=== PATIENT | male | born 1945 | race American Indian/Alaskan Native ===

== ENCOUNTER 2018-01-18 18:04 | Emergency (ER) | payer MEDICARE ==
[2018-01-18 20:25] LABS: Basophils % (Auto) 0.4 % (0.0-1.8); Eosinophils # (Auto) 0.1 K/mm3 (0.0-0.4); Eosinophils % (Auto) 1.1 % (0.0-4.3); Hematocrit 35.7 % (35.5-45.6); Lymphocytes # (Auto) 2.2 K/mm3 (1.2-5.4); Mean Corpuscular HGB Conc 34 % (32-34); Mean Corpuscular Hemoglobin 31 pg (28-32); Mean Corpuscular Volume 92 fl (84-94); Monocytes # (Auto) 0.9 K/mm3 (0.0-0.8); Monocytes % (Auto) 8.3 % (0.0-7.3); Platelet Count 188 K/mm3 (140-440); Red Blood Count 3.88 M/mm3 (3.65-5.03); Red Cell Distribution Width 15.4 % (13.2-15.2)
[2018-01-18 20:44] LABS: Calcium 8.9 mg/dL (8.4-10.2)
--- NOTE | 2018-01-18 22:10 | XRay Report ---
FINAL REPORT PROCEDURE: XR CHEST ROUTINE 2V TECHNIQUE: PA and lateral chest radiographs were obtained. CPT 20992 HISTORY: Shortness of breath COMPARISON: No prior studies are available for comparison. FINDINGS: Heart: Normal. Mediastinum/Vessels: A calcified lymph node is noted in the left hilum most likely representing an old healed granulomatous disease. Lungs/Pleural space: Bilateral lungs are hyperinflated. There are no confluent infiltrates or mass lesions. Pleural spaces are clear.. Bony thorax: No acute osseous abnormality. Other: IMPRESSION: COPD No acute pulmonary process..
--- NOTE | 2018-01-18 22:14 | Emergency Department Report ---
HPI - General Chief Complaint: Dyspnea/Respdistress Time Seen by Provider: 01/18/18 19:58 - HPI HPI: The patient is a 72-year-old male with a history of congestive heart failure, presents for evaluation of dyspnea. The patient states that he experienced a transient episode of moderate to severe constant dyspnea for minutes after returning home from running errands, exacerbated with exertion. He states that his dyspnea has been completely resolved since arrival to the emergency department. The patient denies trauma to the chest, cough, syncope, chest pain, hemoptysis, unilateral leg swelling, recent immobilization, history of DVT or PE , hx of recent cancer. ED Past Medical Hx - Past Medical History Previous Medical History?: Yes Hx Hypertension: Yes Hx Congestive Heart Failure: Yes Hx Arthritis: Yes Hx COPD: Yes Hx HIV: No Additional medical history: CAD - Surgical History Past Surgical History?: Yes Additional Surgical History: Prostate surgery - Social History Smoking Status: Current Every Day Smoker Substance Use Type: None - Medications Home Medications: Home Medications Medication Instructions Recorded Confirmed Last Taken Type ALBUTEROL Inhaler [ProAir HFA 2 puff IH QID PRN 06/08/16 06/08/16 1 Day Ago History Inhaler] ~06/07/16 Budesoni/Formotero 160-4.5(Nf) 2 puff IH BID 06/08/16 06/08/16 1 Day Ago History [Symbicort 160-4.5 (Nf)] ~06/07/16 Temazepam 15 mg PO DAILY 06/08/16 06/08/16 1 Day Ago History ~06/07/16 Aspirin [Aspirin TAB] 325 mg PO QDAY #30 tablet 06/10/16 Unknown Rx AtorvaSTATin [Lipitor] 80 mg PO DAILY #60 tablet 06/10/16 Unknown Rx Carvedilol [Coreg] 12.5 mg PO BID #60 tablet 06/10/16 Unknown Rx Furosemide [Lasix TAB] 40 mg PO QDAY #30 tablet 06/10/16 Unknown Rx Lisinopril [Zestril TAB] 40 mg PO QDAY #30 tablet 06/10/16 Unknown Rx Potassium Chloride [K-Dur] 20 meq PO QDAY #30 tablet 06/10/16 Unknown Rx ED Review of Systems ROS: Stated complaint: SOB Other details as noted in HPI Constitutional: denies: fever ENT: denies: throat or neck pain Respiratory: denies: cough reports shortness of breath Cardiovascular: denies: chest pain Endocrine: denies unexplained weight loss or gain Gastrointestinal: denies: abdominal pain, nausea Genitourinary: denies: dysuria Musculoskeletal: denies: leg swelling Skin: denies: rash Neurological: denies: headache Hematological/Lymphatic: denies: easy bleeding or easy bruising Psych: denies sadness or hopelessness Physical Exam - Physical Exam Vital Signs: Vital Signs 01/18/18 01/18/18 01/18/18 19:42 19:48 19:50 Temperature 98.1 F 98.1 F Pulse Rate 65 65 Respiratory 16 16 16 Rate Blood Pressure 150/64 Blood Pressure 150/64 [Right] O2 Sat by Pulse 98 98 98 Oximetry Physical Exam: General: well-nourished, well-developed, no acute distress Head: Normocephalic, atraumatic Eyes: normal sclera ENT: Mucous membranes are pink and moist Neck: trachea midline, neck supple, No neck stiffness, no cervical adenopathy Respiratory: Breath sounds equal bilaterally, no wheezing, rales, or rhonchi Cardio: S1 and S2 present, no murmurs, rubs, gallops, capillary refill is brisk Abdomen: Normoactive bowel sounds, soft abdomen, no rigidity, no guarding or rebound tenderness Musc: No pitting edema Skin: No rash Neuro: no facial drooping, normal speech Psych: Normal affect ED Course Vital Signs 01/18/18 01/18/18 01/18/18 19:42 19:48 19:50 Temperature 98.1 F 98.1 F Pulse Rate 65 65 Respiratory 16 16 16 Rate Blood Pressure 150/64 Blood Pressure 150/64 [Right] O2 Sat by Pulse 98 98 98 Oximetry ED Medical Decision Making - Lab Data Result diagrams: 01/18/18 20:05 01/18/18 20:05 - Medical Decision Making The patient was seen and examined by myself. The patient is placed on a mapping pilot and continuous pulse ox. On initial evaluation, the patient was found to be in no distress. EKG was negative for findings suggestive of acute cardiac infarct. Labs and imaging are obtained. Chest x-ray exhibits cardiomegaly and mild pulmonary vascular congestion, grossly unchanged from previous x-ray. Lab results reveal elevated BNP of 399, consistent with no history of congestive heart failure. The patient was reevaluated and reported that she remained asymptomatic and felt fine and at his normal baseline. As the patient has a VALERIA risk score less than 2, and a well's score less than 2, the patient is at low risk of ACS or pulmonary emboli etiology of their symptoms. The patient is stable for discharge with outpatient follow-up. The patient is given follow-up and return instructions. The patient expressed understanding and agreed with the plan. The patient is discharged in stable condition. Critical care attestation.: If time is entered above; I have spent that time in minutes in the direct care of this critically ill patient, excluding procedure time. ED Disposition Clinical Impression: Acute dyspnea, History of blood pressure problems Chronic CHF (congestive heart failure) Qualifiers: Heart failure type: unspecified Qualified Code(s): I50.9 - Heart failure, unspecified Disposition: DC-01 TO HOME OR SELFCARE Is pt being admited?: No Does the pt Need Aspirin: No Condition: Stable Instructions: Heart Failure (ED), Dyspnea (ED) Referrals: PRIMARY CARE, [Primary Care Provider] - 3-5 Days Time of Disposition: 22:10
[2018-01-18 23:10] VITALS: BP 150/78
== END 2018-01-18 23:08 | disposition home or self-care (01) ==
LOC: ED 18:04
DX: I11.0 Hypertensive heart disease with heart failure (principal); I50.9 Heart failure, unspecified; M19.90 Unspecified osteoarthritis, unspecified site; J44.9 Chronic obstructive pulmonary disease, unspecified; F17.200 Nicotine dependence, unspecified, uncomplicated
CPT/HCPCS: 36415; 71046; 80048; 83880; 84484; 85025; 93005; 93010; 99284

== ENCOUNTER 2018-12-22 08:35 | Outpatient (CLI) | payer MEDICARE ==
--- NOTE | 2018-12-24 07:50 | Nuclear Medicine Report ---
NUCLEAR MEDICINE BONE SCAN WHOLE BODY HISTORY: Abnormal x-ray of pelvis, history of prostate cancer. TECHNIQUE: Anterior and posterior whole-body imaging was obtained 3 hours after injection of 25 mCi of technetium 99m MDP. Spot shots of the abdomen and pelvis were obtained in multiple projections. FINDINGS: There are few relevant studies for comparison at this facility. Correlation is made with a two-view chest x-ray dated 01/18/18. Physiologic renal and soft tissue activity is identified. There does appear to be mild increased radiotracer accumulation overlying the right acetabulum and possibly the right superior pelvic ramus. The etiology of this is unclear without radiographic correlation. Considerations include advanced degenerative change, metastatic bony lesion or trauma. There is mild degenerative uptake in the bilateral shoulders. Photopenic defects are noted in the left shoulder and bilateral knees consistent with prosthetic joints. Mild scoliosis is evident. There are multiple areas of increased linear uptake in the thoracic and lumbar spine at approximate levels T8-9, L2-3 and L3-4. This appears to be secondary to advanced degenerative disc disease. IMPRESSION: There is limited evaluation of the pelvis without radiographic correlation. There does appear to be increased radiotracer uptake overlying the right acetabulum and possibly the right superior pelvic ramus. Please see above and correlate with x-ray or CT. I am not entirely convinced this is a metastatic bony lesion. Degenerative uptake as described.
== END 2018-12-22 08:36 | disposition home or self-care (01) ==
LOC: NM 08:35
PROVIDERS: ATTEND Internal Medicine
DX: M51.35 Other intervertebral disc degeneration, thoracolumbar region (principal); M19.012 Primary osteoarthritis, left shoulder; M19.011 Primary osteoarthritis, right shoulder; F17.200 Nicotine dependence, unspecified, uncomplicated; I11.0 Hypertensive heart disease with heart failure; I50.20 Unspecified systolic (congestive) heart failure; J44.9 Chronic obstructive pulmonary disease, unspecified; M19.90 Unspecified osteoarthritis, unspecified site; Z85.46 Personal history of malignant neoplasm of prostate
CPT/HCPCS: 78306; A9503

== ENCOUNTER 2019-04-06 07:45 | Outpatient (CLI) | payer MEDICARE ==
--- NOTE | 2019-04-06 12:22 | Nuclear Medicine Report ---
NUCLEAR MEDICINE BONE SCAN, WHOLE BODY INDICATION: Z85.46 HISTORY OF PROSTATE CANCER/R94.8ABNORMAL RADIONUCLIDE BONE. TECHNIQUE: 25 mCi of Tc-99m MDP were injected IV. Whole body images were obtained. Oblique images of the chest abdomen and pelvis were also obtained. COMPARISON: Bone scan dated 12/22/2018. FINDINGS: Skeletal Structures: Fairly symmetric, likely degenerative uptake is present involving the shoulders , spine and hips. Photopenic defects in both kidneys are consistent with bilateral knee replacements. . Skeletal Lesions: None. Soft Tissues: Normal. Kidneys: Normal, symmetric activity. Additional Findings: None. IMPRESSION: There are diffuse degenerative changes which are most pronounced in the shoulders, spine and hips. T his pattern is unchanged since 12/22/2018. No convincing metastatic bony lesions are appreciated on dian ne scan.. Signer Name: Luis Hill Jr, MD Signed: 04/06/2019 12:18 PM Workstation Name: [id number]
== END 2019-04-06 07:46 | disposition home or self-care (01) ==
LOC: NM 07:45
PROVIDERS: ATTEND Internal Medicine
DX: M19.012 Primary osteoarthritis, left shoulder (principal); M19.011 Primary osteoarthritis, right shoulder; M16.0 Bilateral primary osteoarthritis of hip; M47.819 Spondylosis without myelopathy or radiculopathy, site unspecified; R94.8 Abnormal results of function studies of other organs and systems; I11.0 Hypertensive heart disease with heart failure; I50.9 Heart failure, unspecified; J44.9 Chronic obstructive pulmonary disease, unspecified; Z85.46 Personal history of malignant neoplasm of prostate
CPT/HCPCS: 78306; A9503

== ENCOUNTER 2021-03-19 08:06 | Day surgery (SDC) | payer MEDICARE ==
[2021-03-19] MEDS ORDERED: SODIUM CHLORIDE 0.9% 500 ML 500 ML IV SCH (09:00)
[2021-03-19 09:53] LABS: Basophils % (Auto) 0.8 % (0.0-1.8); Eosinophils # (Auto) 0.3 K/mm3 (0.0-0.4); Eosinophils % (Auto) 4.6 % (0.0-4.3); Hematocrit 38.4 % (35.5-45.6); Hemoglobin 13.3 gm/dl (11.8-15.2); Lymphocytes % (Auto) 35.7 % (13.4-35.0); Mean Corpuscular HGB Conc 35 % (32-34); Mean Corpuscular Volume 92 fl (84-94); Monocytes # (Auto) 0.5 K/mm3 (0.0-0.8); Monocytes % (Auto) 9.3 % (0.0-7.3); Platelet Count 186 K/mm3 (140-440); Red Blood Count 4.16 M/mm3 (3.65-5.03); Red Cell Distribution Width 16.2 % (13.2-15.2)
[2021-03-19 10:04] LABS: BUN/Creatinine Ratio 19; Blood Urea Nitrogen 19 mg/dL (9-20); Calcium 9.9 mg/dL (8.4-10.2); Hemolysis Index 16
[2021-03-19 10:09] LABS: INR 1.04 (0.87-1.13)
--- NOTE | 2021-03-19 10:27 | Electrocardiograph Report ---
[facility] Test Date: 2021-03-19 Test Time: 09:25:08 Pat Name: SHENA CISNEROS Department: Room: Gender: M Outreach Director: PEGGY : 1945 Requested By: JOVAN CORDOVA Order Number: [id number] Reading MD: Jovan Cordova Measurements Intervals [place] Rate: 69 P: 68 DC: 272 QRS: -32 QRSD: 115 T: 138 QT: 406 QTc: 436 Interpretive Statements Sinus rhythm Ventricular premature complex Prolonged DC interval Left axis deviation Nonspecific lateral ST and T wave abnormality Probable anterior infarct, age indeterminate No previous ECG available for comparison Electronically Signed On 03-19-2021 10:26:32 EDT by Jovan Cordova
[2021-03-19] MEDS ORDERED: HEPARIN/NS 5000 UNIT/500ML 1,000 ML IR ONE (12:40)
[2021-03-19] MEDS ORDERED: HEPARIN 10,000 UNITS/10 ML VIAL ONE (12:41)
[2021-03-19] MEDS ORDERED: NITROGLYCERIN SYRINGE 3 ML ONE (12:41)
[2021-03-19] MEDS ORDERED: MIDAZOLAM 2 MG/2 ML INJ ONE (12:41)
[2021-03-19] MEDS ORDERED: fentaNYL 100 MCG/2 ML INJ ONE (12:41)
[2021-03-19] MEDS ORDERED: VERAPAMIL 5 MG/2 ML INJ ONE (12:41)
[2021-03-19] MEDS ORDERED: LIDOCAINE (2%) 20 MG/1 ML VIAL 20 ML MDV INFILTRATI ONE (12:41)
--- NOTE | 2021-03-19 13:52 | Discharge Summary ---
Short Stay Discharge Plan Activity: advance as tolerated Weight Bearing Status: Full Weight Bearing Diet: low cholesterol, low salt, diabetic Wound: keep clean and dry Special Instructions: smoking cessation, no heavy lifting (3 days) Follow up with: RAMONA RAJAN MD [Primary Care Provider] - 7 Days CARA CORDOVA MD [Staff Physician] - 7 Days
[2021-03-19] MEDS ORDERED: SODIUM CHLORIDE 0.9% 1000 ML 1,000 ML IV SCH (14:00)
[2021-03-19] MEDS ORDERED: traMADol 50 MG TAB PO PRN (14:00)
--- NOTE | 2021-03-19 14:14 | Cardiac Catherization Report ---
DATE OF SERVICE: 03/19/2021 CARDIAC CATHETERIZATION PROCEDURE REASON FOR PROCEDURE: Congestive heart failure, abnormal thallium stress test. PROCEDURES PERFORMED: 1. Left heart catheterization. 2. Selective left and right coronary angiography. 3. Left ventricular angiography. 4. Sedation time start 13:16, end 13:32. The patient was prepped and draped in a sterile fashion after informed consent. The right radial cath site was prepped and draped after negative Zi's test. The right radial artery was entered using Seldinger technique followed by placement of a 6-Sinhala hydrophilic sheath. Routine radial cocktail was administered via the sheath. Left coronary angiography was performed using a #3.5 left Radha. A #4 right Radha was used for right coronary angiography. Left ventricular angiography was then performed with a pigtail catheter. The catheters were then removed, sheath removed and hemostasis achieved using a TR band. The patient was returned to the postprocedure unit in stable condition. There were no complications. FINDINGS: HEMODYNAMICS: Left ventricular end diastolic pressure was 20, following coronary angiography. Ascending aortic pressure 155/75. There was no significant pressure gradient on pullback across the aortic valve. CORONARY ANGIOGRAPHY: There was moderate diffuse coronary calcification involving both left and right coronary arteries. The left main coronary artery contained mild luminal irregularities. The left anterior descending artery contained a 40-50% stenosis of its proximal segment. Otherwise, this vessel and the diagonal branches contained mild irregularities. The circumflex artery contained mild diffuse irregularities involving its mid AV groove segment. The right coronary artery was dominant. This vessel contained a long, 30-40% stenosis of its mid segment. No severe obstructive lesions were noted in either left or right coronary systems. The left ventricle was moderately to severely dilated. There was severe left ventricular systolic dysfunction with diffuse hypokinesis. Left ventricular ejection fraction estimated less than 15-20%. CONCLUSION: 1. Mild nonobstructive disease of the proximal LAD and mid right coronary artery as noted above. 2. Severe, dilated, nonischemic cardiomyopathy, left ventricular ejection fraction 15-20%. RECOMMENDATIONS: Medical therapy for nonischemic cardiomyopathy, and followup therapies including device therapies as indicated. Aggressive risk factor modification for nonobstructive multivessel coronary artery disease. TID: [id number] RECEIPT: [id number] CA/AMI MTDD
[2021-03-19 15:33] VITALS: BP 140/94
== END 2021-03-19 16:20 | disposition home or self-care (01) ==
LOC: CATHLABREC 08:06
PROVIDERS: ATTEND Internal Medicine Cardiovascular Disease
DX: R94.39 Abnormal result of other cardiovascular function study (principal); I25.10 Atherosclerotic heart disease of native coronary artery without angina pectoris; I42.0 Dilated cardiomyopathy; I25.2 Old myocardial infarction; I50.20 Unspecified systolic (congestive) heart failure; I11.0 Hypertensive heart disease with heart failure; J44.9 Chronic obstructive pulmonary disease, unspecified; I48.91 Unspecified atrial fibrillation; E78.00 Pure hypercholesterolemia, unspecified; M19.90 Unspecified osteoarthritis, unspecified site; Z88.8 Allergy status to other drugs, medicaments and biological substances; Z79.899 Other long term (current) drug therapy; Z79.82 Long term (current) use of aspirin; Z87.891 Personal history of nicotine dependence; Z85.46 Personal history of malignant neoplasm of prostate; Z98.49 Cataract extraction status, unspecified eye; Z98.890 Other specified postprocedural states; Z96.653 Presence of artificial knee joint, bilateral; Z82.61 Family history of arthritis; Z82.49 Family history of ischemic heart disease and other diseases of the circulatory system
CPT/HCPCS: 36415; 80048; 85025; 85610; 85730; 93005; 93458; 99156; C1894; J1644; J2250; J3010; J7040; Q9967

== ENCOUNTER 2021-10-29 09:57 | Outpatient (CLI) | payer MEDICARE ==
--- NOTE | 2021-10-29 11:11 | XRay Report ---
XR chest routine 2V INDICATION / CLINICAL INFORMATION: R91.1 COMPARISON: 01/18/2018 FINDINGS: SUPPORT DEVICES: Transvenous left AICD with leads projecting over the right atrial appendage and righ t ventricular apex.. HEART / MEDIASTINUM: Calcified hilar lymph nodes. No significant abnormality. LUNGS / PLEURA: Lungs are clear. Costophrenic sulci are sharp. No pneumothorax. ADDITIONAL FINDINGS: No significant additional findings. IMPRESSION: 1. No significant findings. Signer Name: Marty Lizama MD Signed: 10/29/2021 11:06 AM Workstation Name: [email or web address]
--- NOTE | 2021-10-29 11:47 | Cat Scan Report ---
CT CHEST WITHOUT CONTRAST INDICATION / CLINICAL INFORMATION: TROUBLE BREATHING, COPD, LT LOWER LUNG NODULE . TECHNIQUE: Axial CT images were obtained through the chest without contrast. All CT scans at this location are p erformed using CT dose reduction for ALARA by means of automated exposure control. COMPARISON: None available. FINDINGS: There is a pulmonary nodule within the left lower lung measuring 7 mm. Several additional pulmonary n odules within the right upper lung identified measuring between 1 and 6 mm. Atherosclerotic changes o f aorta and coronary vessels. No dominant mediastinal or hilar adenopathy. Degenerative changes seen throughout spine with scoliosis cardiomegaly is noted. UPPER ABDOMEN: No significant abnormality. SKELETAL SYSTEM: No significant abnormality. IMPRESSION: 1. Multiple pulmonary nodules in bilateral lungs measuring up to 7 mm in size. INCIDENTAL PULMONARY NODULE RECOMMENDATION RECOMMENDATION: Solid Nodule size 6-8 mm -- Single - Low Risk Patient: CT at 6-12 months, then consider CT at 18-24 months - High Risk Patient: CT at 6-12 months, then CT at 18-24 months Note These recommendations do not apply to lung cancer screening, patients with immunosuppression, o r patients with known primary cancer. Note Newly detected indeterminate nodule in persons 35 years of age or older. Persons under the age of 35 should not receive follow-up unless there is a known primary cancer. Note Perifissural Nodule is a fissure-attached/subpleural, homogeneous, solid nodule that has smooth margins and an oval, lentiform, or triangular shape. They represent about 20% of nodules detected in lung cancer screening, are invariably benign, and do not require follow-up. Nodules 10 mm or larger (or those with suspicious features) will continue to be managed based on the size criteria. Low Risk Patient = minimal or absent history of smoking and of other known risk factors. High Risk Patient = history of smoking or of other known risk factors. Nodule dimensions are average of long and short axes, rounded to the nearest millimeter. Based on 2017 Fleischner Society Guidelines found in Radiology 2017 284:228-243. https://doi.org/10.1148/radiol.8884482028 https://www.ncbi.nlm.nih.gov/pmc/articles/ELS5606637/ Signer Name: Nils Lyle MD Signed: 10/29/2021 11:42 AM Workstation Name: [id number]
[2021-10-29 11:54] LABS: ABG Base Excess -0.8 mmol/L (-2.0-3.0); ABG HCO3 24.4 mmol/L (20.0-26.0); ABG Methemoglobin 0.5 % (0.0-1.5); ABG Oxygen Saturation 94.4 % (95.0-99.0); ABG PCO2 42.5 mm Hg; ABG PH 7.376 pH Units (7.350-7.450); ABG PO2 70.5 mm Hg (80.0-90.0)
[2021-10-29 12:28] LABS: Hematocrit 37.7 % (35.5-45.6); Hemoglobin 13.1 gm/dl (11.8-15.2); Mean Corpuscular HGB Conc 35 % (32-34); Mean Corpuscular Volume 92 fl (84-94); Platelet Count 161 K/mm3 (140-440); Red Blood Count 4.08 M/mm3 (3.65-5.03); Red Cell Distribution Width 14.3 % (13.2-15.2)
[2021-10-29 12:43] LABS: Alanine Aminotransferase 19 units/L (7-56); Albumin 3.9 g/dL (3.9-5); BUN/Creatinine Ratio 18; Blood Urea Nitrogen 24 mg/dL (9-20); Chol/HDL Ratio 2.43 %; HDL Cholesterol 66 mg/dL (40-59); Hemolysis Index 4; LDL Cholesterol,Direct 90 mg/dL (50-130)
== END 2021-10-29 09:58 | disposition home or self-care (01) ==
LOC: CT 09:57
PROVIDERS: ATTEND Internal Medicine
DX: R91.1 Solitary pulmonary nodule (principal); I21.9 Acute myocardial infarction, unspecified; J30.89 Other allergic rhinitis; J44.9 Chronic obstructive pulmonary disease, unspecified; E78.00 Pure hypercholesterolemia, unspecified; I10 Essential (primary) hypertension; I70.0 Atherosclerosis of aorta; M47.814 Spondylosis without myelopathy or radiculopathy, thoracic region
CPT/HCPCS: 36415; 36600; 71046; 71250; 80053; 80061; 82785; 82803; 84436; 84443; 85027

== ENCOUNTER 2022-05-27 10:12 | Outpatient (CLI) | payer MEDICARE ==
[2022-05-27 10:44] LABS: Hematocrit 34.5 % (35.5-45.6); Hemoglobin 11.6 gm/dl (11.8-15.2); Mean Corpuscular HGB Conc 34 % (32-34); Mean Corpuscular Volume 96 fl (84-94); Platelet Count 183 K/mm3 (140-440); Red Cell Distribution Width 16.7 % (13.2-15.2)
[2022-05-27 11:15] LABS: ABG HCO3 20.1 mmol/L (20.0-26.0); ABG Methemoglobin 0.5 % (0.0-1.5); ABG Oxygen Saturation 96.8 % (95.0-99.0); ABG PCO2 33.6 mm Hg; ABG PH 7.396 pH Units (7.350-7.450); ABG PO2 81.1 mm Hg (80.0-90.0)
[2022-05-27 12:48] LABS: Calcium 9.6 mg/dL (8.4-10.2); Chol/HDL Ratio 2.52 %
--- NOTE | 2022-05-27 13:28 | XRay Report ---
CHEST 2 VIEWS INDICATION / CLINICAL INFORMATION: R91.1 LEFT LOWER NODULE/COPD. COMPARISON: 10/29/21. FINDINGS: SUPPORT DEVICES: The position of the dual chamber left subclavian ICD has not changed. HEART / MEDIASTINUM: The heart size and pulmonary vasculature are normal. LUNGS / PLEURA: There are small calcified granulomata in the left mid lung and right lower lung. Ther e are calcified left hilar lymph nodes. The lungs are otherwise clear. There is no evidence of pleura l effusion. No pneumothorax. ADDITIONAL FINDINGS: The left hemidiaphragm is slightly higher than the right. There is mild thoracol umbar scoliosis with moderate spondylosis. There is a left shoulder prosthesis. IMPRESSION: No acute abnormality or significant change. Signer Name: Farhan Saini MD Signed: 05/27/2022 1:23 PM Workstation Name: [email or web address]
--- NOTE | 2022-05-27 13:51 | Cat Scan Report ---
CT CHEST WITHOUT CONTRAST INDICATION / CLINICAL INFORMATION: R91.1 SOLITARY PULMONARY NODULE. TECHNIQUE: Axial CT images were obtained through the chest without contrast. All CT scans at this location are p erformed using CT dose reduction for ALARA by means of automated exposure control. COMPARISON: 10/29/2021 FINDINGS: Emphysematous changes seen within the lungs. Mild interstitial prominence with chronic interstitial c hange. There is a pulmonary nodule within the right upper lung measuring 7 mm, unchanged. Within the left lower lung there is additional 7 mm pulmonary nodule which appears unchanged. Nodule along the r ight fissure is noted, unchanged. Atherosclerotic changes seen within the aorta. Paratracheal and hil ar nodes are seen. Severe coronary artery calcification IMPRESSION: 1. Multiple pulmonary nodules measuring up to 7 mm in size. Findings appear similar and unchanged sin ce prior examination. No new nodular masses identified. Emphysematous changes noted. INCIDENTAL PULMO NARY NODULE RECOMMENDATION RECOMMENDATION: Solid Nodule size 6-8 mm -- Multiple - Low Risk Patient: CT at 3-6 months, then consider CT at 18-24 months - High Risk Patient: CT at 3-6 months, then CT at 18-24 month Note These recommendations do not apply to lung cancer screening, patients with immunosuppression, o r patients with known primary cancer. Note Newly detected indeterminate nodule in persons 35 years of age or older. Persons under the age of 35 should not receive follow-up unless there is a known primary cancer. Note Perifissural Nodule is a fissure-attached/subpleural, homogeneous, solid nodule that has smooth margins and an oval, lentiform, or triangular shape. They represent about 20% of nodules detected in lung cancer screening, are invariably benign, and do not require follow-up. Nodules 10 mm or larger (or those with suspicious features) will continue to be managed based on the size criteria. Low Risk Patient = minimal or absent history of smoking and of other known risk factors. High Risk Patient = history of smoking or of other known risk factors. Nodule dimensions are average of long and short axes, rounded to the nearest millimeter. Based on 2017 Fleischner Society Guidelines found in Radiology 2017 284:228-243. https://doi.org/10.1148/radiol.0340042207 https://www.ncbi.nlm.nih.gov/pmc/articles/KNW6133300/ Signer Name: Nils Lyle MD Signed: 05/27/2022 1:47 PM Workstation Name: [id number]
== END 2022-05-27 10:13 | disposition home or self-care (01) ==
LOC: CT 10:12
PROVIDERS: ATTEND Internal Medicine
DX: J43.9 Emphysema, unspecified (principal); I21.9 Acute myocardial infarction, unspecified; I49.9 Cardiac arrhythmia, unspecified; J30.89 Other allergic rhinitis; I70.0 Atherosclerosis of aorta; R91.8 Other nonspecific abnormal finding of lung field; M47.815 Spondylosis without myelopathy or radiculopathy, thoracolumbar region
CPT/HCPCS: 36415; 71046; 71250; 80053; 80061; 82785; 82803; 84436; 84443; 85027; 86003